=== PATIENT | female | born 2000 | race Caucasian/White ===

== ENCOUNTER 2018-12-19 13:59 | Emergency (ER) | payer BC, OTHER ==
[~2018-12-19] VITALS: Ht 170.2 cm; Wt 100.0 kg
[2018-12-19 14:43] LABS: BASO # 0.1 10^3/uL (0.0-0.2); BASO % 0.6 % (0.0-1.0); EOS # 0.1 10^3/uL (0.0-0.50); EOS % 1.3 % (0.0-3.0); LYMPH # 2.5 10^3/uL (1.5-6.5); LYMPH % 25.1 % (24.0-44.0); MEAN CORPUSCULAR HEMOGLOBIN 27.2 pg (27.0-33.0); MEAN CORPUSCULAR HGB CONC 31.8 g/dl (32.0-36.5); MEAN CORPUSCULAR VOLUME 85.6 fl (80.0-96.0); MONO # 0.6 10^3/uL (0.0-0.8); MONO % 5.8 % (0.0-5.0); NEUTROPHILS # 6.6 10^3/uL (1.8-7.7); NEUTROPHILS % 66.9 % (36.0-66.0); PLATELET COUNT, AUTOMATED 328 10^3/uL (150-450); RED BLOOD COUNT 5.14 10^6/uL (4.00-5.40); WHITE BLOOD COUNT 9.8 10^3/uL (4.0-10.0)
--- NOTE | 2018-12-19 15:24 | REP ---
Clinical: Chest pain and tightness . Comparison: None . Technique: PA and lateral. Findings: The mediastinum and cardiac silhouette are normal. The lung marcos are clear and without acute consolidation, effusion, or pneumothorax. The skeletal structures are intact and normal. Impression: 1. No acute cardiopulmonary process. Electronically Signed by Jay Taylor MD 12/19/2018 03:16 P
[2018-12-19 15:25] LABS: BLOOD UREA NITROGEN 8 MG/DL (7-18); CALCIUM LEVEL 9.2 MG/DL (8.5-10.1); CARBON DIOXIDE LEVEL 28 MEQ/L (21-32); CHLORIDE LEVEL 107 MEQ/L (98-107); CK-MB VALUE MASS 3.8 NG/ML (<3.6); CPK CREATINE PHOSPHOKINASE 1727 U/L (26-192); CREATININE FOR GFR 0.67 MG/DL (0.55-1.30); GLUCOSE, FASTING 87 MG/DL (70-100); MB/CK RELATIVE INDEX 0.22 (< OR =4); POTASSIUM SERUM 4.5 MEQ/L (3.5-5.1); SODIUM LEVEL 141 MEQ/L (136-145); TROPONIN I < 0.02 NG/ML (< 0.10)
[2018-12-19] MEDS ORDERED: CALC500C16 PO (16:04)
[2018-12-19] MEDS ORDERED: FOLI400T PO (16:04)
[2018-12-19] MEDS ORDERED: CVS400CA PO (16:04)
[2018-12-19] MEDS ORDERED: MULT1TAB8 PO (16:04)
[2018-12-19] MEDS ORDERED: NEXP1IMP SC (16:09)
[2018-12-19] MEDS ORDERED: ACETAMINOPHEN 325 MG TAB PO ONE (17:30)
[2018-12-19 18:22] VITALS: BP 138/68
--- NOTE | 2018-12-20 15:29 | ECGEPIP ---
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 Order Number: [id number] Reading MD: Kat Gallagher Measurements Intervals [place] Rate: 99 P: 41 [place]: 176 QRS: 42 QRSD: 77 T: 18 QT: 337 QTc: 434 Interpretive Statements SINUS RHYTHM No prior Electronically Signed on 12-20-2018 15:28:56 EDT by Kat Gallagher
== END 2018-12-19 18:40 | disposition home or self-care (01) ==
LOC: M ED 13:59
DX: M62.82 Rhabdomyolysis (principal); R07.89 Other chest pain; Z98.84 Bariatric surgery status; Z88.0 Allergy status to penicillin; Z79.899 Other long term (current) drug therapy